=== PATIENT | female | born 1955 | race Caucasian/White ===

== ENCOUNTER 2019-06-15 06:03 | Inpatient (IN) | payer OTHER ==
[2019-06-09 17:16] VITALS: BMI 27.6
[2019-06-15] MEDS ORDERED: BUPIVICAINE 0.25%/MORPH PF/KETOROLAC - 51ML DISP.SYRINGE IA ONE ×2 (06:17→09:48)
[2019-06-15] MEDS ORDERED: TRANEXAMIC ACID 1000 MG/10 ML VIAL IVPUSH ONE (06:17)
[2019-06-15] MEDS ORDERED: CELECOXIB 200 MG CAPSULE PO ONE (06:17)
[2019-06-15] MEDS ORDERED: oxyCODONE HCL 10 MG SUSTAINED ACTING TABLET PO ONE (06:17)
[2019-06-15] MEDS ORDERED: PANTOPRAZOLE 40 MG TABLET (FP) PO ONE (06:20)
--- NOTE | 2019-06-15 07:19 | HP ---
Admitting History and Physical - Admission Chief Complaint: right hip osteoarthritis x years History of Present Illness: 63 year old female presents in regard to their right hip. Long-standing history of right hip osteoarthritis. Patient complains of pain, limited range of motion , difficulty ambulating, and difficulty with activities of daily living. Patient has failed conservative treatment options including PO medications, activity modification, injections, and exercise programs. At this point, patient like to proceed with surgical intervention, right total hip arthroplasty MAKOplasty. History Source: Patient - Past Medical History Cardiovascular: Yes: HTN, Hyperlipdemia Musculoskeletal: Yes: Osteoarthritis - Past Surgical History Additional Past Surgical History: See written history & physical. - Smoking History Smoking history: Former smoker Have you smoked in the past 12 months: No If you are a former smoker, when did you quit?: as teenager - Alcohol/Substance Use Hx Alcohol Use: Yes (social) Home Medications - Allergies Allergies/Adverse Reactions: Allergies Allergy/AdvReac Type Severity Reaction Status Date / Time azithromycin Allergy Rash Verified 06/15/19 06:39 Sulfa (Sulfonamide Allergy Rash Verified 06/09/19 17:19 Antibiotics) celecoxib [From Celebrex] AdvReac Swelling Verified 06/15/19 06:39 - Home Medications Home Medications: Ambulatory Orders Ascorbic Acid/Ascorbate Sodium [Vitamin C 250 mg Tablet Chew] 250 mg PO DAILY Atorvastatin Calcium 10 mg PO DAILY 06/09/19 Calcium Phosphate Trib/Vit D3 [Calcium + Vitamin D3 Gummies] 1 each PO DAILY 09/23 Cyanocobalamin (Vitamin B-12) [Vitamin B-12] 1,000 mcg PO DAILY 06/09/19 Losartan Potassium 100 mg PO DAILY 06/09/19 [place]-3/Dha/Epa/Ala/Vitamin D3 [[place]-3 Gummies] 1 each PO DAILY 06/09/19 Meloxicam [Mobic] 7.5 mg PO BID 06/15/19 Review of Systems - Review of Systems Musculoskeletal: reports: Decreased ROM (right hip), Joint Pain (right hip) Neurological: reports: Incoordination Physical Examination Vital Signs: Vital Signs Temperature 98.5 F 06/15/19 06:43 Pulse Rate 83 06/15/19 06:43 Respiratory Rate 18 06/15/19 06:43 Blood Pressure 134/80 06/15/19 06:43 O2 Sat by Pulse Oximetry (%) 95 06/15/19 06:45 Constitutional: Yes: Well Nourished, No Distress Eyes: Yes: Conjunctiva Clear HENT: Yes: Atraumatic, Normocephalic, Tonsillar Exudate Cardiovascular: Yes: Regular Rate and Rhythm Respiratory: Yes: Regular Gastrointestinal: Yes: Soft ...Rectal Exam: Yes: Deferred Musculoskeletal: Yes: Joint Stiffness (right hip) Assessment/Plan 63 years old female presents in regard to their right hip. Long-standing history of right hip osteoarthritis. Patient complains of pain, limited range of motion, difficulty ambulating, and difficulty with activities of daily living. Patient has failed conservative treatment options including PO medications, activity modification, injections, and exercise programs. At this point, patient like to proceed with surgical intervention, right total hip arthroplasty MAKOplasty. Pros, cons, risks, benefits, and alternatives of a right total hip arthroplasty MAKOplasty were discussed with the patient at length. Patient confirms their understanding and consents to proceed with a right total hip arthroplasty MAKOplasty.
[2019-06-15] MEDS ORDERED: EPINEPHrine/PF 1 MG/1 ML (1:1,000) AMPULE ONE (07:25)
[2019-06-15] MEDS ORDERED: MIDAZOLAM HCL 2 MG/2 ML SINGLE DOSE VIAL ONE ×2 (07:25→07:31)
[2019-06-15] MEDS ORDERED: PROPOFOL 20 ML ONE ×6 (07:31→11:03)
[2019-06-15] MEDS ORDERED: SUCCINYLCHOLINE CHLORIDE 200 MG/10 ML SYRINGE ONE (07:31)
[2019-06-15] MEDS ORDERED: ceFAZolin SODIUM 1 GM VIAL ONE ×2 (07:32→07:37)
[2019-06-15] MEDS ORDERED: DEXAMETHASONE SOD PHOSPHATE 4 MG/1 ML VIAL ONE (07:32)
[2019-06-15] MEDS ORDERED: ONDANSETRON 4 MG/2 ML VIAL ONE (07:32)
[2019-06-15] MEDS ORDERED: LIDOCAINE HCL/PF 2% SDV 5ML VIAL ONE (07:32)
[2019-06-15] MEDS ORDERED: VANCOMYCIN 1,000 MG VIAL (RESTRICTED TO ID ONLY) ONE (07:37)
[2019-06-15] MEDS ORDERED: CEFAZOLIN 2 GM in DEXTROSE 5%-WATER - 50 ML IVPB ONE (08:00)
[2019-06-15] MEDS ORDERED: BUPIVACAINE HCL/PF 0.5% (5MG/ML) 10 ML VIAL ONE (08:16)
[2019-06-15] MEDS ORDERED: KETOROLAC TROMETHAMINE 30 MG/1 ML VIAL ONE (11:29)
[2019-06-15] MEDS ORDERED: traMADol HCL 50 MG TABLET ONE (11:29)
--- NOTE | 2019-06-15 11:29 | OP ---
Operative Note - Note: Operative Date: 06/15/19 Pre-Operative Diagnosis: right hip OA Operation: right hip makoplasty Post-Operative Diagnosis: Same as Pre-op Surgeon: Naga Tubbs Pluck Separator: Josi Gomez Anesthesiologist/PHYSICAL THERAPY NURSE: Balwinder Calloway Anesthesia: Spinal, Local, MAC Specimens Removed: right femoral head Estimated Blood Loss (mls): 200 Fluid Volume Replaced (mls): 1,600 Operative Report Dictated: Yes
[2019-06-15] MEDS ORDERED: ACETAMINOPHEN INJECTION 100 ML IVPB ONE (11:30)
--- NOTE | 2019-06-15 11:30 | SURG ---
Surgery Phlebotomist Note Phlebotomist: Josi Gomez PA-C Date of Service: 06/15/19 Diagnosis: right hip OA Procedure: right hip makoplasty I was present for the entirety of the operative procedure. For further detail, please refer to operative report. Visit type - Case Type Case Type: Scheduled - Emergency Emergency Visit: No - New patient This patient is new to me today: Yes Date on this admission: 06/15/19
[2019-06-15] MEDS: ACETAMINOPHEN 1000 MG/100 ML VIAL (NON FORMULARY) IVPB ONE (11:45)
[2019-06-15] MEDS ORDERED: traMADol HCL 50 MG TABLET PO SCH (11:45)
[2019-06-15] MEDS ORDERED: ONDANSETRON 4 MG/2 ML VIAL IVPUSH PRN (11:46)
[2019-06-15] MEDS ORDERED: oxyCODONE HCL 5 MG TABLET PO PRN (11:46)
[2019-06-15] MEDS: KETOROLAC TROMETHAMINE 30 MG/1 ML VIAL IVPUSH SCH ×4 (11:49→23:54)
[2019-06-15] MEDS ORDERED: ACETAMINOPHEN 325 MG TABLET (FP) PO SCH (12:00)
--- NOTE | 2019-06-15 12:34 | SPEC ---
DATE OF OPERATION: 06/15/2019 PREOPERATIVE DIAGNOSIS: Right hip osteoarthritis. POSTOPERATIVE DIAGNOSIS: Right hip osteoarthritis. PROCEDURE: Right total hip replacement with MAKOplasty robotic navigation. ATTENDING: Saleem Lerma MD PROTOTYPE ASSEMBLER ELECTRONICS: ANGELA Garcia ANESTHESIA: Spinal plus sedation. ESTIMATED BLOOD LOSS: 200 mL. COMPLICATIONS: None. DISPOSITION: The patient was taken to the PACU in stable condition. IMPLANTS USED: Matteo Accolade II size 4 femoral component, Matteo Trident II 52-mm acetabular component with 20-, 20-, and 30-mm acetabular screws, MDM bipolar head ball and liner with inner ceramic +4-mm offset head ball. INDICATIONS: This is a 63-year-old female who presented to the office complaining of severe right hip pain. She was seen and examined by Dr. Lerma and diagnosed with severe right hip osteoarthritis. The patient was initially treated conservatively but continued to have severe pain and ambulatory dysfunction. She was, therefore, indicated for a right total hip replacement. The risks, benefits, and alternatives to the procedure were explained to the patient in great detail, and she elected to proceed with the surgery. DESCRIPTION OF PROCEDURE: On the day of surgery, the patient was taken to the operating room and placed on the OR table. Spinal anesthesia was administered by the anesthesiologist. The patient was then positioned in the lateral decubitus position on the table and all bony prominences were padded. An axillary roll was placed. The operative hip was then prepped and draped in the usual sterile fashion and intravenous antibiotics were given for infection prophylaxis. A surgical time-out was then performed with the team, and the patients identity, procedure, side, availability of implants, and the administration of antibiotics were confirmed. An approximately 15-cm longitudinal incision was made through the skin centered on the greater trochanter of the hip. This dissection was carried down through the subcutaneous tissues to the deep fascia. This fascia was then incised and a Cobra was placed around the inferior femoral neck. Electrocautery was used to reflect the anterior 40% of the gluteus medius and minimus starting at the musculotendinous junction and leaving a cuff for closure. This was reflected to reveal the capsule of the hip joint. An anterior capsulectomy was performed and the femoral head and neck were visualized. Grade 4 changes were noted diffusely throughout the joint. At this point, three small stab incisions were made superior to the main incision along the iliac crest. Three self-drilling Steinmann pins were then placed and the [employer] pelvic array was attached. Reference points on the limb were then entered into the robotic device and the limb length deficiency, offset, and femoral neck resection level were then calculated by the software. The hip was then dislocated with traction and external rotation. An oscillating saw was used to make the femoral neck cut at the level previously templated, and the femoral head was removed. Attention was then turned to the acetabulum. Retractors were then placed around the acetabulum and the labrum was removed. An acetabular checkpoint pin and the [employer] software were used to register the contours of the acetabulum. The acetabulum was then reamed in a single stage to the preoperatively templated size using the Jn robotic arm. The appropriately sized cup was then impacted and had solid fixation as well as the preset inclination and version of 40 and 20 degrees, respectively. A polyethylene liner was then placed in the cup. Attention was then turned back to the femur, which was externally rotated for improved visualization. A femoral neck elevator was used to present the femoral neck cut, a box osteotome was used to enter the femoral canal, and a canal finder was used to go down the femoral shaft. The Jn broaches were used sequentially until the optimal scratch fit was achieved. This correlated with the preoperatively templated size. From here, several different offset head and neck configurations were tested until excellent stability and length were obtained. These measurements were quantified using the [employer] software. All trial components were then removed, the femur was copiously irrigated, and the final components were placed. Leg length and stability were checked again and found to be excellent. Irrigation was performed again. After final implants were placed, a dilute Betadine lavage was performed for 3 minutes. Following this, the wound was thoroughly irrigated via pulsatile lavage and wound closure was begun. Wound closure was started by repairing the abductor muscles with a no. 2 FiberWire stitch in a Krackow configuration passed through bone tunnels in the greater trochanter and tied over a bony bridge. This repair was then reinforced with a 0 V-Loc 180 barbed suture. Next, no. 1 Polysorb and 0 V-Loc 180 were used to close the fascia. The deep subcutaneous tissue was closed with no. 1 Polysorb sutures, and 2-0 Polysorb was used for the superficial subcutaneous tissue. The skin was closed using both 3-0 V-Loc 90 suture in a running subcuticular fashion and SwiftSet skin adhesive. The Jn array and pins were removed from the iliac crest and the stab incision sites were irrigated and closed with 4-0 Polysorb sutures and SwiftSet skin adhesive. Once this was completed, a sterile dressing was applied. The patient was then awakened and taken to the PACU in stable condition. SALEEM LERMA M.D. [id number]
[2019-06-15] MEDS: LACTATED RINGERS SOLUTION 1,000 ML IV SCH (13:11)
[2019-06-15] MEDS: oxyCODONE HCL 5 MG TABLET PO PRN (15:49)
[2019-06-15] MEDS: traMADol HCL 50 MG TABLET PO PRN (15:51)
[2019-06-15] MEDS: ACETAMINOPHEN 325 MG TABLET (FP) PO SCH ×2 (17:20→23:54)
[2019-06-15] MEDS ORDERED: DEXAMETHASONE SOD PHOSPHATE 10 MG/1 ML VIAL IVPB ONE (20:00)
[2019-06-15] MEDS: oxyCODONE HCL 10 MG SUSTAINED ACTING TABLET PO SCH (21:57)
[2019-06-16] MEDS: ACETAMINOPHEN 325 MG TABLET (FP) PO SCH ×4 (06:32→23:29)
[2019-06-16] MEDS: KETOROLAC TROMETHAMINE 30 MG/1 ML VIAL IVPUSH SCH (06:33)
[2019-06-16] MEDS: ACETAMINOPHEN 1000 MG/100 ML VIAL (NON FORMULARY) IVPB ONE (08:03)
[2019-06-16] MEDS: ATORVASTATIN CA 10 MG TABLET (FP) PO SCH (09:26)
[2019-06-16] MEDS: LOSARTAN POTASSIUM 50 MG TABLET (FP) PO SCH (09:26)
[2019-06-16] MEDS: oxyCODONE HCL 10 MG SUSTAINED ACTING TABLET PO SCH ×2 (09:26→21:18)
[2019-06-16] MEDS ORDERED: MAG HYDROX/AL HYDROX/SIMETH 30 ML UNIT-DOSE CUP PO PRN (11:04)
[2019-06-16] MEDS ORDERED: MAGNESIUM HYDROX 2400MG/30ML ORAL SUSPENSION 30 ML CUP PO PRN (11:04)
[2019-06-16] MEDS ORDERED: ONDANSETRON 4 MG/2 ML VIAL IVPUSH PRN (11:04)
[2019-06-16 11:56] LABS: HEMATOCRIT 33.9 % (32.4-45.2); HEMOGLOBIN 11.6 GM/dl (10.7-15.3); MCH 29.7 pg (25.7-33.7); MCHC 34.2 g/dl (32.0-36.0); MEAN CELL VOLUME 86.9 fl (80-96); MEAN PLT VOLUME 9.1 fl (7.5-11.1); PLATELET COUNT 213 K/MM3 (134-434); RDW 12.1 % (11.6-15.6); WHITE BLOOD COUNT 13.7 K/mm3 (4.0-10.8)
[2019-06-16] MEDS: ASPIRIN 325 MG TABLET PO SCH (11:58)
[2019-06-16] MEDS: MULTIVITAMINS (DAILY MVI) TABLET (FP) PO SCH (11:59)
[2019-06-16] MEDS: PANTOPRAZOLE 40 MG TABLET (FP) PO SCH (11:59)
[2019-06-16] MEDS: GABAPENTIN 300 MG CAPSULE (FP) PO SCH ×2 (11:59→21:18)
[2019-06-16] MEDS: CEFAZOLIN 2 GM/D5W 2 GM/50 ML ML IVPB SCH ×2 (11:59→18:50)
[2019-06-16] MEDS: ASCORBIC ACID 500 MG TABLET (FP) PO SCH ×2 (11:59→21:19)
[2019-06-16] MEDS: LACTATED RINGERS SOLUTION 1,000 ML IV SCH (12:00)
[2019-06-16 12:04] LABS: CALCIUM 8.2 mg/dl (8.5-10); CREATININE 0.6 mg/dl (0.55-1.3); POTASSIUM 3.6 mmol/L (3.5-5.1)
--- NOTE | 2019-06-16 15:14 | PN ---
Progress Note, Physician Chief Complaint: s/p right CAMERON under spinal anesthesia post op day one History of Present Illness: paravertebral block for post op pain control - Current Medication List Current Medications: Active Medications Acetaminophen (Tylenol -) 650 mg PO Q6H [facility] Stop: 06/18/19 17:59 Last Admin: 06/16/19 12:56 Dose: 650 mg Al Hydroxide/Mg Hydroxide (Mylanta Oral Suspension -) 30 ml PO Q4H PRN PRN Reason: DYSPEPSIA Ascorbic Acid (Vitamin C -) 500 mg PO BID [facility] Last Admin: 06/16/19 11:59 Dose: 500 mg Aspirin (Asa -) 325 mg PO DAILY@0800 [facility] Last Admin: 06/16/19 11:58 Dose: 325 mg Atorvastatin Calcium (Lipitor -) 10 mg PO DAILY [facility] Last Admin: 06/16/19 09:26 Dose: 10 mg Gabapentin (Neurontin -) 300 mg PO BID [facility] Stop: 06/19/19 11:07 Last Admin: 06/16/19 11:59 Dose: 300 mg Lactated Ringer's (Lactated Ringers Solution) 1,000 mls @ 125 mls/hr IV ASDIR [facility] Last Admin: 06/16/19 12:00 Dose: Not Given Cefazolin Sodium/Dextrose (Ancef 2 Gm Premixed Ivpb -) 2 gm in 50 mls @ 100 mls /hr IVPB Q8H [facility] Stop: 06/16/19 19:44 Last Admin: 06/16/19 11:59 Dose: 100 mls/hr Losartan Potassium (Cozaar -) 100 mg PO DAILY [facility] Last Admin: 06/16/19 09:26 Dose: 100 mg Magnesium Hydroxide (Milk Of Magnesia -) 30 ml PO PRN PRN PRN Reason: CONSTIPATION Multivitamins/Minerals/Vitamin C (Tab-A-Vit -) 1 tab PO DAILY [facility] Last Admin: 06/16/19 11:59 Dose: 1 tab Ondansetron HCl (Zofran Injection) 4 mg IVPUSH Q6H PRN PRN Reason: NAUSEA Oxycodone HCl (Roxicodone -) 5 mg PO Q3H PRN PRN Reason: PAIN LEVEL 4 - 6 Last Admin: 06/15/19 15:49 Dose: 5 mg Oxycodone HCl (Roxicodone -) 10 mg PO Q3H PRN PRN Reason: PAIN LEVEL 7 - 10 Oxycodone HCl (Oxycontin -) 10 mg PO BID [facility] Stop: 06/18/19 11:47 Last Admin: 06/16/19 09:26 Dose: 10 mg Pantoprazole Sodium (Protonix -) 40 mg PO DAILY [facility] Last Admin: 06/16/19 11:59 Dose: 40 mg Senna/Docusate Sodium (Pericolace -) 2 tablet PO BID [facility] Tramadol HCl (Ultram -) 50 mg PO Q3H PRN PRN Reason: PAIN LEVEL 1 - 3 Last Admin: 06/15/19 15:51 Dose: 50 mg - Objective Vital Signs: Vital Signs Temperature 97.8 F 06/16/19 08:54 Pulse Rate 100 H 06/16/19 08:54 Respiratory Rate 18 06/16/19 08:54 Blood Pressure 128/83 06/16/19 08:54 O2 Sat by Pulse Oximetry (%) 97 06/16/19 08:27 Constitutional: Yes: Well Nourished Cardiovascular: Yes: WNL Respiratory: Yes: WNL Gastrointestinal: Yes: WNL Labs: CBC, BMP 06/16/19 11:47 06/16/19 11:47 Assessment/Plan No adverse effects of anesthetic, dept of anesthesia will sign off care at this time
[2019-06-16] MEDS: traMADol HCL 50 MG TABLET PO PRN (19:06)
[2019-06-16] MEDS: oxyCODONE HCL 5 MG TABLET PO PRN (20:25)
[2019-06-16] MEDS: SENNOSIDES/DOCUSATE COMBO (SENNA PLUS) TABLET (UD) PO SCH (21:19)
[2019-06-17] MEDS: ACETAMINOPHEN 325 MG TABLET (FP) PO SCH (05:38)
[2019-06-17] MEDS: oxyCODONE HCL 5 MG TABLET PO PRN ×2 (05:38→10:09)
[2019-06-17 06:49] VITALS: PULSE 79
[2019-06-17 10:06] VITALS: BP 102/66; TEMP 97.5
[2019-06-17] MEDS: ASPIRIN 325 MG TABLET PO SCH (10:07)
[2019-06-17] MEDS: oxyCODONE HCL 10 MG SUSTAINED ACTING TABLET PO SCH (10:08)
[2019-06-17] MEDS: LOSARTAN POTASSIUM 50 MG TABLET (FP) PO SCH (10:08)
[2019-06-17] MEDS: ATORVASTATIN CA 10 MG TABLET (FP) PO SCH (10:08)
[2019-06-17] MEDS: ASCORBIC ACID 500 MG TABLET (FP) PO SCH (10:09)
[2019-06-17] MEDS: MULTIVITAMINS (DAILY MVI) TABLET (FP) PO SCH (10:10)
[2019-06-17] MEDS: PANTOPRAZOLE 40 MG TABLET (FP) PO SCH (10:10)
[2019-06-17] MEDS: GABAPENTIN 300 MG CAPSULE (FP) PO SCH (10:10)
[2019-06-17] MEDS: SENNOSIDES/DOCUSATE COMBO (SENNA PLUS) TABLET (UD) PO SCH (10:10)
--- NOTE | 2019-06-17 11:04 | DS ---
Physical Examination Vital Signs: Vital Signs Temperature 97.5 F L 06/17/19 10:00 Pulse Rate 79 06/17/19 10:00 Respiratory Rate 18 06/17/19 10:00 Blood Pressure 102/66 06/17/19 10:00 O2 Sat by Pulse Oximetry (%) 100 06/17/19 10:00 Labs: CBC, BMP 06/16/19 11:47 06/16/19 11:47 Discharge Summary Problems reviewed: Yes Reason For Visit: RIGHT HIP OSTEOARTHRITIS Current Active Problems Osteoarthritis of right hip (Acute) Procedures: Principal: right CAMERON Hospital Course: Admitted for elective surgery. Procedure performed without complications. Pt received postoperative antibiotic prophylaxis and DVT ppx. Ambulated with physical therapy. Stable for discharge home with outpatient followup. Condition: Stable - Instructions Diet, Activity, Other Instructions: Dr Tubbs - Hip Replacement Instructions Keep the Aquacel dressing on until removed by Dr. Tubbs in the office - it is antibacterial and waterproof and you can shower with it on. Call the office for a follow-up appointment with Dr. Tubbs on SaturdayJULY 10. [phone] Take one Aspirin 325mg daily for 6 weeks to prevent blood clots in your legs. Take one Pantoprazole 40mg daily for 6 weeks to protect against heartburn and ulcers. Take Cephalexin (antibiotic) 3x/day for 10 days to help prevent skin infection. Resume Meloxicam 7.5mg twice daily for 30 days to reduce swelling and inflammation. Take a multivitamin, stool softener and extra Vitamin C supplement daily. For pain: *Mild pain (1-3/10): Take 1 Tramadol tablet every 4 hours as needed. Moderate pain (4-6/10): Take 1 Tramadol tablet and 1 Percocet tablet every 4 hours as needed. Severe pain (7-10/10): Take 1 Tramadol tablet and 2 Percocet tablets every 4 hours as needed. Activity: You can put as much weight on the operative leg as you want. For the first 6 weeks, all you need to do is walk around the house, go up/down stairs, and sit down/get up. After 6 weeks when everything is healed (and bone has grown into the implant) you will be sent for more intensive outpatient physical therapy. Always use a walker or cane for balance and to prevent falls. Expect to see swelling / bruising from the operative site all the way down to your toes. Wear the Compression stocking on the operative side during the day to minimize how much swelling there is in your foot/ankle. Don't wear the stocking at night. You don't have to wear the stocking on the other side. Disposition: [facility]/HOME HEALTH CARE - Home Medications Comprehensive Discharge Medication List: Ambulatory Orders Ascorbic Acid/Ascorbate Sodium [Vitamin C 250 mg Tablet Chew] 250 mg PO DAILY Atorvastatin Calcium 10 mg PO DAILY 06/09/19 Calcium Phosphate Trib/Vit D3 [Calcium + Vitamin D3 Gummies] 1 each PO DAILY 09/23 Cyanocobalamin (Vitamin B-12) [Vitamin B-12] 1,000 mcg PO DAILY 06/09/19 Losartan Potassium 100 mg PO DAILY 06/09/19 [place]-3/Dha/Epa/Ala/Vitamin D3 [[place]-3 Gummies] 1 each PO DAILY 06/09/19 Ascorbic Acid [Vitamin C -] 500 mg PO BID tablet 06/17/19 Aspirin [ASA -] 325 mg PO DAILY@0800 tablet 06/17/19 Cephalexin Monohydrate [Keflex -] 500 mg PO TID #30 capsule 06/17/19 Meloxicam [Mobic] 7.5 mg PO BID #60 tablet 06/17/19 Multivitamins [Multivit (RH Formulary)] 1 tab PO DAILY tab 06/17/19 Oxycodone HCl/Acetaminophen [Percocet 5-325 mg Tablet] 1 - 2 tab PO Q4H PRN #60 tablet MDD 10 06/17/19 Pantoprazole Sodium [Protonix -] 40 mg PO DAILY #40 tablet.ec 06/17/19 Sennosides/Docusate Sodium [Pericolace -] 2 tablet PO BID tablet 06/17/19 traMADol HCL [Ultram -] 50 mg PO Q4H PRN #42 tablet MDD 6 06/17/19
--- NOTE | 2019-06-17 15:11 | PATH ---
Surgical Pathology Report Patient Name: KAROL JANE Med. Rec. #: [id number] /Age/Gender: 1955 (Age: 63) / F Account: [id number] Location: [facility] MED-SURG Taken: 06/15/2019 Received: 06/15/2019 Reported: 06/17/2019 Physicians: Naga Tubbs M.D. Specimen(s) Received RIGHT FEMORAL HEAD Clinical History Osteoarthritis right hip Final Diagnosis FEMORAL HEAD, RIGHT, TOTAL HIP REPLACEMENT: DEGENERATIVE JOINT DISEASE. Electronically Signed Josi Cedeno M.D. Gross Description Received in formalin, labeled "right femoral head," is a 4.2 x 4.3 x 4.0 cm. femoral head with a 1.1 cm in length portion of femoral neck attached. The margin of resection is smooth. There is a 3.8 cm in greatest dimension area of eburnation present. The remaining articular surface is blackwell-yellow and diffusely granular. The underlying trabecular bone is yellow and hard. A termite control representative section is submitted in one cassette, following decalcification. 06/16/2019 [facility]06/16/2019
== END 2019-06-17 12:55 | disposition home health service (06) | DRG 470 ==
LOC: FM/S 06:03
PROVIDERS: ADMIT Student in an Organized Health Care Education/Training Program; ATTEND Student in an Organized Health Care Education/Training Program
PROC: 8E0W0CZ Robotic Assisted Procedure of Trunk Region, Open Approach (ICD-10-PCS; 2019-06-15)
PROC: 0SR903A Replacement of Right Hip Joint with Ceramic Synthetic Substitute, Uncemented, Open Approach (ICD-10-PCS; principal; 2019-06-15 09:24)
DX: M16.11 Unilateral primary osteoarthritis, right hip (principal); I10 Essential (primary) hypertension; E78.5 Hyperlipidemia, unspecified
CPT/HCPCS: 36415; 73502-TC-RT-FY; 80048; 85027; 88305-TC; 88311-TC; 94760; 97116-GP; 97163-GP; J0131; J1100